=== PATIENT | male | born 1945 | race Caucasian/White ===

== ENCOUNTER 2020-05-18 02:11 | Inpatient (IN) | payer MEDICARE, BC ==
[2020-05-18] VITALS (56 sets, daily range): BP systolic 59–135; BP diastolic 51–95
[~2020-05-18] VITALS: Ht 172.7 cm; Wt 77.1 kg
--- NOTE | 2020-05-18 02:28 | NUR ---
PATIENT CAME TO THE ER BIB RA 78 C/O SUBSTERNAL CHEST PAIN FOR THE PAST 3x DAYS. PT RECEIVED NITROSPRAY SUBLINGUAL EN ROUTE FROM HOME BY PARAMEDICS. PATIENT C/O 2/10 TIGHTNESS PAIN. PATIENT IS AAOX4. NO SOB .BREATHING EVENLY AND UNLABORED ON ROOM AIR AT 96%. CONNECTED TO THE DIANETICIST.
[2020-05-18] MEDS ORDERED: DILTIAZEM HCL 50 MG IV IV ONE (02:30)
--- NOTE | 2020-05-18 02:31 | NUR ---
SPOKE WITH GLORIA FROM [facility], WILL FAX FACESHEET AND CLINICAL PER REQUEST
[2020-05-18] MEDS ORDERED: DILTIAZEM HCL 50 MG IV ONE (02:35)
[2020-05-18 02:47] LABS: BASOPHILS # (AUTO) 0.1 /CMM (0.0-0.2); BASOPHILS % (AUTO) 0.5 % (0.0-2.0); EOSINOPHILS % (AUTO) 0.8 % (0.0-6.0); HEMATOCRIT 52 % (39-51); HEMOGLOBIN 17.3 g/dL (13.5-17.5); LYMPHOCYTES # (AUTO) 1.9 /CMM (0.8-4.8); LYMPHOCYTES % (AUTO) 15.9 % (20.0-44.0); MEAN CORPUSCULAR HGB CONC 33 g/dl (31.0-36.0); MEAN CORPUSCULAR VOLUME 86 fL (80-96); MONOCYTES # (AUTO) 0.8 /CMM (0.1-1.30); MONOCYTES % (AUTO) 6.7 % (2.0-12.0); NEUTROPHILS % (AUTO) 76.1 % (43.0-81.0); PLATELET COUNT (AUTO) 175 /CMM (150-450); WHITE BLOOD COUNT (AUTO) 11.9 K/uL (4.3-11.0)
--- NOTE | 2020-05-18 02:51 | NUR ---
SPOKE WITH GLORIA FROM [facility]. PER DR. FRANCIS (FIELD REVIEWER), STATES "[employer]" REQUESTING TO CALL BACK WITH TROPONIN RESULTS. IF POSITIVE, WILL TRANSFER IN AM.
--- NOTE | 2020-05-18 02:51 | NUR ---
Note merly in EDM - 05/18/20 at 0255 by JAILYN SPOKE WITH GLORIA FROM [facility]. PER GLORIA, MIRROR DEPARTMENT SUPERVISOR STATES "P[employer]" REQUESTING TO CALL BACK WITH TROPONIN RESULTS. IF POSITIVE, WILL TRANSFER IN AM.
[2020-05-18 02:56] LABS: CALCIUM, SERUM 10.1 mg/dL (8.5-10.1); CREATININE 1.3 mg/dL (0.6-1.3); POTASSIUM 3.3 mmol/L (3.5-5.1)
--- NOTE | 2020-05-18 02:58 | NUR ---
covid swab sent to lab
--- NOTE | 2020-05-18 02:58 | NUR ---
XRAY AT BEDSIDE
[2020-05-18 03:02] LABS: ALBUMIN 4.2 g/dL (3.4-5.0); BILIRUBIN,DIRECT 0.2 mg/dL (0.0-0.2); BILIRUBIN,TOTAL 0.8 mg/dL (0.2-1.0); TOTAL PROTEIN, SERUM 8.2 g/dL (6.4-8.2)
--- NOTE | 2020-05-18 03:26 | NUR ---
ATTEMPTED TO CONTACT [facility] REGARDING POSITIVE TROPONIN, NO ANSWER. FAXED RESULTS TO [facility]
[2020-05-18] MEDS ORDERED: HEPARIN SODIUM, PORCINE 5000 UNITS/1 ML VIAL ONE (03:36)
[2020-05-18] MEDS ORDERED: MORPHINE SULFATE INJ 2 MG/ML DISP.SYRIN IV ONE (04:00)
[2020-05-18] MEDS ORDERED: HEPARIN SODIUM, PORCINE 5000 UNITS/1 ML VIAL IV ONE (04:00)
[2020-05-18] MEDS ORDERED: HEPARIN INFUSION/D5W 500 ML IV PRN (04:00)
[2020-05-18] MEDS ORDERED: MORPHINE SULFATE INJ 2 MG/ML DISP.SYRIN ONE (04:02)
[2020-05-18] MEDS ORDERED: HEPARIN INFUSION/D5W 500 ML IV ONE (04:06)
--- NOTE | 2020-05-18 04:54 | NUR ---
LAB CALLED REGARDING NEGATIVE COVID RESULT.
[2020-05-18] MEDS ORDERED: DILTIAZEM HCL 25 MG IV ONE (05:00)
[2020-05-18] MEDS ORDERED: DILTIAZEM HCL IV 125 MG in IV NS 0.9% 100 ML IV PRN (05:00)
--- NOTE | 2020-05-18 06:00 | NUR ---
DR. PINO AT BEDSIDE
[2020-05-18] MEDS ORDERED: AMIODARONE 150 MG in IV D5W 100 ML IV ONE (06:30)
[2020-05-18] MEDS ORDERED: AMIODARONE 450 MG in IV D5W 250 ML IV PRN (06:30)
--- NOTE | 2020-05-18 06:41 | NUR ---
PATIENT AMBULATED TO THE RESTROOM WITH A STEADY GAIT.
[2020-05-18] MEDS ORDERED: Z GUARD REMEDY 2 OZ OINT TP PRN (07:00)
[2020-05-18] MEDS ORDERED: MAGNESIUM HYDROXIDE 30 ML UDC PO PRN (07:00)
[2020-05-18] MEDS: POTASSIUM CHLORIDE 20 MEQ TAB.PRT.SR PO SCH ×3 (07:00→09:28)
[2020-05-18] MEDS ORDERED: ONDANSETRON HCL/PF 4 MG/2 ML VIAL IVP PRN (07:00)
[2020-05-18] MEDS ORDERED: ZOLPIDEM TARTRATE 5 MG TABLET PO PRN (07:00)
[2020-05-18] MEDS ORDERED: MORPHINE SULFATE INJ 2 MG/ML DISP.SYRIN IV PRN (07:00)
[2020-05-18] MEDS ORDERED: HYDROCODONE/APAP 5/325MG TABLET PO PRN (07:00)
[2020-05-18] MEDS ORDERED: MAG HYDROX/AL HYDROX/SIMETH 30 ML UDC PO PRN (07:00)
--- NOTE | 2020-05-18 07:12 | NUR ---
TRIED TO GIVE REPORT, STAFF STATES, "YOU CAN GIVE REPORT IN 30MINUTES, THE NURSE IS RECEIVING REPORT RIGHT NOW FROM OTHER NURSES."
--- NOTE | 2020-05-18 07:15 | NUR ---
ASSESSED PT ON BED AWAKE AND ALERT NOT IN RESPIRATORY DISTRESS, V/S STABLE, KEPT RESTED AND COMFORTABLE. WILL CONTINUE TO MONITOR.
--- NOTE | 2020-05-18 07:22 | NUR ---
PHARMACY CALLED FOR AMIODARONE MEDICATION
[2020-05-18] MEDS ORDERED: POTASSIUM CHLORIDE 20 MEQ TAB.PRT.SR PO ONE (07:25)
--- NOTE | 2020-05-18 07:30 | NUR ---
LOPRESSOR NOT GIVEN BP 116/60.
[2020-05-18] MEDS: PANTOPRAZOLE 40 MG TABLET.DR PO SCH (07:31)
[2020-05-18] MEDS: METOPROLOL TARTRATE 50 MG TABLET PO SCH ×3 (07:31→20:20)
--- NOTE | 2020-05-18 07:31 | NUR ---
REPORT GIVEN TO TYLOR BELLA FOR [facility].
[2020-05-18] MEDS: AMIODARONE 450 MG in IV D5W 250 ML IV PRN ×2 (08:30→16:10)
--- NOTE | 2020-05-18 09:00 | NUR ---
ICU/RN PT ADMITTED FROM ER. DES STATUS.PT IS AWAKE, ALERT ,ORIENTED. 2L N/C SAT O2-96-97%.V/S STABLE ,AFEBRILE.NO PAIN REPORTED AT THIS TIME.A-FIB ON MONITOR. ON AMIODARONE DRIP. PERIFERAL IV.PT USE URINAL.SKIN INTACT.LABS REVIEW.MD AWARE . DUE MEDS ARE GIVEN ORDERED.PT EATS BREAKFAST. CONTINUE MONITORING.
[2020-05-18 09:15] LABS: BASOPHILS % (AUTO) 0.1 % (0.0-2.0); HEMATOCRIT 50 % (39-51); HEMOGLOBIN 16.7 g/dL (13.5-17.5); LYMPHOCYTES # (AUTO) 1.1 /CMM (0.8-4.8); LYMPHOCYTES % (AUTO) 7.6 % (20.0-44.0); MEAN CORPUSCULAR HGB CONC 33 g/dl (31.0-36.0); MEAN CORPUSCULAR VOLUME 86 fL (80-96); MONOCYTES # (AUTO) 0.6 /CMM (0.1-1.30); MONOCYTES % (AUTO) 4.3 % (2.0-12.0); NEUTROPHILS # (AUTO) 13.1 /CMM (1.8-8.9); PLATELET COUNT (AUTO) 185 /CMM (150-450); RED BLOOD CELL COUNT(AUTO) 5.82 MIL/uL (4.5-6.0); WHITE BLOOD COUNT (AUTO) 14.9 K/uL (4.3-11.0)
[2020-05-18 09:26] LABS: ALBUMIN 3.6 g/dL (3.4-5.0); BILIRUBIN,TOTAL 0.9 mg/dL (0.2-1.0); CALCIUM, SERUM 9.7 mg/dL (8.5-10.1); CREATININE 1.1 mg/dL (0.6-1.3); MAGNESIUM 2.1 mg/dL (1.8-2.4); PHOSPHORUS 3.2 mg/dL (2.5-4.9); POTASSIUM 3.8 mmol/L (3.5-5.1); THYROID STIMULATING HORMONE 0.481 uIU/mL (0.358-3.74); TOTAL PROTEIN, SERUM 7.3 g/dL (6.4-8.2)
[2020-05-18] MEDS: ENOXAPARIN SODIUM 80 MG/0.8 ML DISP.SYRIN SQ SCH ×2 (09:28→20:24)
[2020-05-18] MEDS: ASPIRIN 81 MG TAB.CHEW PO SCH (09:28)
[2020-05-18] MEDS: ATORVASTATIN 40 MG TABLET PO SCH (09:31)
[2020-05-18] MEDS: ACETAMINOPHEN 325 MG TABLET PO PRN ×2 (12:55→20:20)
--- NOTE | 2020-05-18 13:15 | NUR ---
ICU/RN. TROPONIN LEVEL INCREASED TO 5.892.DR BAILEY NOTIFIED. AT BED SIDE.
--- NOTE | 2020-05-18 18:32 | NUR ---
ICU/RN PT IS RESTING IN THE BED.STILL ON AMIODARONE DRIP.17-30 PM CONVERTED TO SINUS RHYTHM .V/S STABLE,AFEBRILE.NO PAIN REPORTED AT THIS TIME. CONTINUE TO MONITOR.
--- NOTE | 2020-05-18 20:00 | NUR ---
RN NOTE RECEIVED PT IN BED, A/O X4 ON 2 L VIA NC SATING 95%.PT HAS UNLABORED BREATHING . PT IS ON AMIODARONE DRIP RUNNING AT 0.5 MG/MIN. SAFETY MEASURES IN PLACE
--- NOTE | 2020-05-18 20:32 | NUR ---
DR PINO NOTIFIED ABOUT TROPONIN 24.056, PER DR PINO CONTINUE PREVIOUS ORDER NO NEW ORDER.
[2020-05-19] VITALS (78 sets, daily range): BP systolic 73–151; BP diastolic 31–87
[2020-05-19 05:36] LABS: BASOPHILS % (AUTO) 0.2 % (0.0-2.0); EOSINOPHILS % (AUTO) 0.1 % (0.0-6.0); HEMATOCRIT 50 % (39-51); HEMOGLOBIN 16.6 g/dL (13.5-17.5); LYMPHOCYTES # (AUTO) 2.2 /CMM (0.8-4.8); LYMPHOCYTES % (AUTO) 10.3 % (20.0-44.0); MEAN CORPUSCULAR HGB CONC 33 g/dl (31.0-36.0); MEAN CORPUSCULAR VOLUME 85 fL (80-96); MONOCYTES # (AUTO) 2.2 /CMM (0.1-1.30); MONOCYTES % (AUTO) 10.2 % (2.0-12.0); NEUTROPHILS # (AUTO) 16.7 /CMM (1.8-8.9); NEUTROPHILS % (AUTO) 79.2 % (43.0-81.0); PLATELET COUNT (AUTO) 213 /CMM (150-450); RED BLOOD CELL COUNT(AUTO) 5.91 MIL/uL (4.5-6.0); WHITE BLOOD COUNT (AUTO) 21.1 K/uL (4.3-11.0)
[2020-05-19 05:54] LABS: ALBUMIN 3.3 g/dL (3.4-5.0); BILIRUBIN,TOTAL 1.6 mg/dL (0.2-1.0); CALCIUM, SERUM 9.6 mg/dL (8.5-10.1); CREATININE 1.2 mg/dL (0.6-1.3); MAGNESIUM 2.1 mg/dL (1.8-2.4); PHOSPHORUS 3.3 mg/dL (2.5-4.9); POTASSIUM 4.4 mmol/L (3.5-5.1); TOTAL PROTEIN, SERUM 7.2 g/dL (6.4-8.2)
[2020-05-19 06:03] LABS: THYROID STIMULATING HORMONE 0.511 uIU/mL (0.358-3.74)
--- NOTE | 2020-05-19 06:20 | NUR ---
INFORMED DR [facility] TROPONIN 33.544, NO NEW ORDER AT THIS TIME, PER PT IS ON LOVENOX .
--- NOTE | 2020-05-19 07:36 | NUR ---
pt remained stable during my shift report given to incoming shift for elaine.
[2020-05-19] MEDS ORDERED: AZIL80TA PO (07:58)
[2020-05-19] MEDS ORDERED: HYDR25TA4 PO (07:58)
[2020-05-19] MEDS ORDERED: COLE3.755 PO (08:00)
--- NOTE | 2020-05-19 08:00 | NUR ---
RN NOTES RECEIVED PATIENT IN THE BED A/O X3, ON O2-NC 2L, PATIENT REFUSED PAIN ON BEDSIDE MONITOR SHOWS 64. PATIENT REFUSED SOB, NO PAIN . DUE MEDICATION ADMINISTERED, V/S STABLE. ASSIST TURN AND REPOSTION Q2 HR. PATIENT USING URINAL. CALL LIGHT WITHIN TO REACH. SEEN BY BIOLOGICAL SCIENCES INSTRUCTOR Dr BEY PATIENT WILL TRANSFER TELE UNIT.
[2020-05-19] MEDS: PANTOPRAZOLE 40 MG TABLET.DR PO SCH (08:19)
[2020-05-19] MEDS: ATORVASTATIN 40 MG TABLET PO SCH ×2 (08:19→08:34)
[2020-05-19] MEDS: ENOXAPARIN SODIUM 80 MG/0.8 ML DISP.SYRIN SQ SCH ×2 (08:21→22:05)
[2020-05-19] MEDS: ASPIRIN 81 MG TAB.CHEW PO SCH (08:21)
[2020-05-19] MEDS: METOPROLOL TARTRATE 50 MG TABLET PO SCH ×2 (08:22→20:19)
[2020-05-19] MEDS: AMIODARONE HCL 200 MG TABLET PO SCH ×3 (09:14→17:10)
[2020-05-19] MEDS: ACETAMINOPHEN 325 MG TABLET PO PRN (17:10)
--- NOTE | 2020-05-19 17:10 | NUR ---
rn notes t-99,7 administered Tylenol 650 mg po prn per patient request, also administered scheduled medication. patient sign consent form for LT heart ventricular angiography.
--- NOTE | 2020-05-19 19:27 | NUR ---
sherman mcclain medication were administered for fever effective t- 99.3F at this time. will monitoring.
--- NOTE | 2020-05-19 20:55 | NUR ---
rn notes held bp medication because bp drop 86/32, p-72. patient stable, refused pain. no acute respiratory distress. endorsed oncoming nurse follow plan of care.
[2020-05-20] VITALS (45 sets, daily range): BP systolic 96–138; BP diastolic 29–85
[2020-05-20 05:08] LABS: BASOPHILS % (AUTO) 0.1 % (0.0-2.0); EOSINOPHILS % (AUTO) 0.1 % (0.0-6.0); HEMATOCRIT 47 % (39-51); HEMOGLOBIN 15.7 g/dL (13.5-17.5); LYMPHOCYTES # (AUTO) 1.5 /CMM (0.8-4.8); LYMPHOCYTES % (AUTO) 11.3 % (20.0-44.0); MEAN CORPUSCULAR HGB CONC 33 g/dl (31.0-36.0); MEAN CORPUSCULAR VOLUME 86 fL (80-96); MONOCYTES # (AUTO) 1.6 /CMM (0.1-1.30); MONOCYTES % (AUTO) 11.3 % (2.0-12.0); NEUTROPHILS # (AUTO) 10.6 /CMM (1.8-8.9); NEUTROPHILS % (AUTO) 77.2 % (43.0-81.0); PLATELET COUNT (AUTO) 156 /CMM (150-450); RED BLOOD CELL COUNT(AUTO) 5.47 MIL/uL (4.5-6.0); WHITE BLOOD COUNT (AUTO) 13.7 K/uL (4.3-11.0)
[2020-05-20 05:40] LABS: BILIRUBIN,TOTAL 1.4 mg/dL (0.2-1.0); CALCIUM, SERUM 9.3 mg/dL (8.5-10.1); CREATININE 1.1 mg/dL (0.6-1.3); MAGNESIUM 2.1 mg/dL (1.8-2.4); PHOSPHORUS 2.3 mg/dL (2.5-4.9); POTASSIUM 4.1 mmol/L (3.5-5.1); TOTAL PROTEIN, SERUM 6.9 g/dL (6.4-8.2)
--- NOTE | 2020-05-20 07:00 | NUR ---
RN NOTES PATIENT ASLEEP WELL. NO SIGNIFICANT CHANGES. DENIES CHEST PAIN OR ANY PAIN, NO SOB ON ROOM AIR. CONSENT FORM CAME FROM PROCEDURE SIGNED BY PATIENT WITNESSED BY OR STAFF. REMAINED ST ON TELE MONITOR. KEPT PT CLEAN AND DRY.
[2020-05-20] MEDS: PANTOPRAZOLE 40 MG TABLET.DR PO SCH (07:30)
--- NOTE | 2020-05-20 08:00 | NUR ---
RN NOTES PATIENT A/O X3, STABLE, REFUSED PAIN, NO ACUTE RESPIRATORY DISTRESS, . PATIENT NPO , HOLD AM MEDICATION BECAUSE SCHEDULED FOR lT HEART VENTRICULAR ANGIOGRAM. WILL MONITORING.
[2020-05-20] MEDS: ATORVASTATIN 40 MG TABLET PO SCH (09:00)
[2020-05-20] MEDS: ASPIRIN 81 MG TAB.CHEW PO SCH (09:00)
[2020-05-20] MEDS: METOPROLOL TARTRATE 50 MG TABLET PO SCH ×2 (09:00→20:58)
[2020-05-20] MEDS: AMIODARONE HCL 200 MG TABLET PO SCH ×3 (09:00→18:18)
--- NOTE | 2020-05-20 09:00 | NUR ---
RN NOTES PATIENT NPO FOR PROCEDURE, AND HELD AM MEDICATION.
--- NOTE | 2020-05-20 12:08 | NUR ---
RN NOTES PATIENT PNEUMATIC TOOL REPAIRER AT THIS TIME PLANNING ADVISOR FOR LT HEART VENTRICULAR ANGIOGRAM.
[2020-05-20] MEDS ORDERED: MIDAZOLAM HCL 2 MG/2ML VIAL ONE (12:25)
[2020-05-20] MEDS ORDERED: NITROGLYCERIN ICAR 1,000 MCG/10 ML VIAL ICAR ONE (12:25)
[2020-05-20] MEDS ORDERED: FENTANYL PF 100MCG/2ML AMPUL ONE (12:25)
[2020-05-20] MEDS ORDERED: LIDOCAINE HCL/PF 1% 30 ML SDV ONE (12:25)
[2020-05-20] MEDS ORDERED: IV NS 0.9% 1,000 ML ONE (12:29)
[2020-05-20] MEDS ORDERED: IV SET PRIMARY PUMP SET 1 EA INFUS.SET MC ONE ×2 (12:30→13:01)
[2020-05-20] MEDS ORDERED: HEPARIN SODIUM, PORCINE 5000 UNITS/1 ML VIAL ONE (12:54)
[2020-05-20] MEDS ORDERED: HEPARIN SODIUM, PORCINE 1,000 UNIT/ML VIAL ONE (12:55)
[2020-05-20] MEDS ORDERED: IODIXANOL 320MG/ML 50 ML IV ONE (12:55)
[2020-05-20] MEDS ORDERED: ADENOSINE 90 MG/30 ML VIAL IV ONE (13:01)
[2020-05-20] MEDS ORDERED: IV NS 0.9% 500 ML IV ONE (13:16)
[2020-05-20] MEDS ORDERED: ADENOSINE 6 MG/2 ML VIAL ONE (13:16)
[2020-05-20] MEDS ORDERED: ASPIRIN 81 MG TAB.CHEW ONE (13:20)
[2020-05-20] MEDS ORDERED: TICAGRELOR 90 MG TABLET PO ONE (13:20)
--- NOTE | 2020-05-20 14:00 | NUR ---
RN NOTES PATIENT BACK FROM LT HEART VENTRICULAR ANGIOGRAM AT THIS TIME. AWAKE A/O X3, NO S/S OF RESPIRATORY DISTRESS, AND PAIN. PATIENT S/P STENT PLACEMENT. RECEIVED VERBAL ORDER TO REMOVE 13 CC OF AIR FROM TR BAND RADIAL COMPRESSION BAND. PER TR BAND ASSESSMENT INTACT, NO BLEEDING NOTED. ORDERS RECEIVED AND CARRIED OUT. FAXED ESTEFANIILINTA ORDER TO CASE MANAGEMENT AND SPOKE TO JOSE KAUFFMAN . WILL PROVIDE MEDICATION TO PATIENT PRIOR TO DISCHARGE.
--- NOTE | 2020-05-20 14:53 | NUR ---
rn notes removed 3 cc of air from TR Band redial compression device at this time , no bleeding notes. bp 118/ 85, p-76, patient refused pain, and discomfort at this time. will monitoring.
[2020-05-20] MEDS ORDERED: ASPIRIN 81 MG TAB.CHEW PO ONE (15:00)
[2020-05-20] MEDS ORDERED: IV NS 0.9% 1,000 ML IV SCH (15:00)
[2020-05-20] MEDS ORDERED: ATROPINE SULFATE 1 MG/10 ML DISP.SYRIN IV PRN (15:00)
[2020-05-20] MEDS ORDERED: K PHOS NEUTRAL 250 MG TABLET PO ONE (15:30)
--- NOTE | 2020-05-20 16:10 | NUR ---
rn notes removed 2 cc of air from TR band , patient has small amount of bleeding from right nostril, called md and get order pack right nostril, administered scheduled medication, infusing ns at 100 ml/hr intact, will monitoring.
--- NOTE | 2020-05-20 16:40 | NUR ---
rn notes removed 2 ml of air, no bleeding, checked circulation , and pulse on redial area present.
--- NOTE | 2020-05-20 17:10 | NUR ---
rn notes removed 3 ml of air, checked circulation and pulse TR band area intact.
--- NOTE | 2020-05-20 17:40 | NUR ---
rn notes removed 3 ml of air no bleeding.
--- NOTE | 2020-05-20 17:50 | NUR ---
rn notes patient stable no bleeding. TR band removed, applied band aid. Patient comfortable, change lenience, and offer dinner, and due medication. tolerated 50 % dinner, safety precaution maintained all the time, infusing NS at 100 ml/hr on right fa intact, call light within to reach. using urinal. endorsed oncoming nurse follow plan of care.
[2020-05-21] VITALS (40 sets, daily range): BP systolic 95–141; BP diastolic 51–72
[2020-05-21 05:14] LABS: BASOPHILS % (AUTO) 0.2 % (0.0-2.0); EOSINOPHILS % (AUTO) 0.6 % (0.0-6.0); HEMATOCRIT 45 % (39-51); HEMOGLOBIN 14.9 g/dL (13.5-17.5); LYMPHOCYTES # (AUTO) 1.4 /CMM (0.8-4.8); MEAN CORPUSCULAR HGB CONC 33 g/dl (31.0-36.0); MEAN CORPUSCULAR VOLUME 87 fL (80-96); MONOCYTES # (AUTO) 1.5 /CMM (0.1-1.30); MONOCYTES % (AUTO) 11.7 % (2.0-12.0); NEUTROPHILS # (AUTO) 9.9 /CMM (1.8-8.9); NEUTROPHILS % (AUTO) 76.5 % (43.0-81.0); PLATELET COUNT (AUTO) 171 /CMM (150-450); RED BLOOD CELL COUNT(AUTO) 5.18 MIL/uL (4.5-6.0); WHITE BLOOD COUNT (AUTO) 12.9 K/uL (4.3-11.0)
[2020-05-21 05:24] LABS: CALCIUM, SERUM 8.6 mg/dL (8.5-10.1); PHOSPHORUS 3.1 mg/dL (2.5-4.9)
--- NOTE | 2020-05-21 07:30 | NUR ---
RN OPENING NOTES PATENT PRESENT IN BED, A/OX4, ON NC@2L , TOLERATING WELL, NO SOB, SPO2 IS 96%, DENIES PAIN OR DISCOMFORT, AMBULATORY, URINAL AT BED SITE, ALLERGIES NOTED, IV LINE FLUSHED, PATENT AND INTACT, SAFETY MEASURES IN PLACE, BED IS LOCKED, CALL LIGHT IN REACH, WILL CONT TO MONITOR
--- NOTE | 2020-05-21 07:35 | NUR ---
RN NOTES PATIENT ASLEEP WELL. NO APPARENT RESPIRATORY DISTRESS. DENIES CHEST PAIN. NSR ON TELE MONITOR. RIGHT RADIAL REMAINED INTACT NO ACTIVE BLEEDING PRESENT. DENIES PAIN. OR NUMBNESS. AFEBRILE THROUGHOUT THE SHIFT. ALL NEEDS ATTENDED. ASSISTED WHEN NEEDED. KEPT CLEAN AND DRY.
[2020-05-21] MEDS: PANTOPRAZOLE 40 MG TABLET.DR PO SCH (07:55)
[2020-05-21] MEDS ORDERED: AMIODARONE HCL 200 MG TABLET PO SCH (09:00)
[2020-05-21] MEDS: ATORVASTATIN 40 MG TABLET PO SCH ×2 (09:00→09:32)
[2020-05-21] MEDS ORDERED: TICAGRELOR 90 MG TABLET PO SCH (09:00)
--- NOTE | 2020-05-21 09:00 | NUR ---
NC REMOVED, PATIENT ON ROOM AIR, TOLERATING WELL, NO SOB OR RESP DISTRESS NOTED, SPO2 IS 97%
[2020-05-21] MEDS: ASPIRIN 81 MG TAB.CHEW PO SCH (09:32)
[2020-05-21] MEDS: METOPROLOL TARTRATE 50 MG TABLET PO SCH (09:35)
--- NOTE | 2020-05-21 09:48 | NUR ---
Refuse Atrovastin, stating have an adverse reaction to STATINS, made aware
[2020-05-21] MEDS ORDERED: AMIO200T7 PO (09:54)
[2020-05-21] MEDS ORDERED: METO50TA16 PO (09:54)
[2020-05-21] MEDS ORDERED: ASPI-1169 PO (09:54)
[2020-05-21] MEDS ORDERED: TICA90TA PO (09:54)
--- NOTE | 2020-05-21 13:18 | NUR ---
Patient discharged home, via car (friend picked up) , eduction provided, discharge instructions provided, ID band and IV line removed
[2020-05-22] MEDS ORDERED: COLESEVELAM PO SCH (09:00)
[2020-05-22] MEDS ORDERED: AZILSARTAN MEDOXOMIL 80 MG PO SCH (09:00)
== END 2020-05-21 13:05 | disposition home or self-care (01) | DRG 246 ==
LOC: ER 02:13 → TELE 05:05 → ICU 06:50
PROVIDERS: ADMIT Family Medicine; ATTEND Hospitalist
PROC: 027034Z Dilation of Coronary Artery, One Artery with Drug-eluting Intraluminal Device, Percutaneous Approach (ICD-10-PCS; principal; 2020-05-20)
PROC: 4A023N7 Measurement of Cardiac Sampling and Pressure, Left Heart, Percutaneous Approach (ICD-10-PCS; 2020-05-20)
PROC: B211YZZ Fluoroscopy of Multiple Coronary Arteries using Other Contrast (ICD-10-PCS; 2020-05-20)
DX: I48.91 Unspecified atrial fibrillation (principal); I21.A1 Myocardial infarction type 2; N17.0 Acute kidney failure with tubular necrosis; I10 Essential (primary) hypertension; E87.6 Hypokalemia; D72.829 Elevated white blood cell count, unspecified; Z80.8 Family history of malignant neoplasm of other organs or systems; E78.5 Hyperlipidemia, unspecified; I25.10 Atherosclerotic heart disease of native coronary artery without angina pectoris; R73.9 Hyperglycemia, unspecified; H18.40 Unspecified corneal degeneration; R74.8 Abnormal levels of other serum enzymes; Z20.822 Contact with and (suspected) exposure to COVID-19; T50.2X5A Adverse effect of carbonic-anhydrase inhibitors, benzothiadiazides and other diuretics, initial encounter; Y92.89 Other specified places as the place of occurrence of the external cause
CPT/HCPCS: 36415; 71045-TC; 80048-TC; 80053-TC; 80061-TC; 80076-TC; 83735-TC; 84100-TC; 84439-TC; 84443-TC; 84484-TC; 85025-TC; 85730-TC; 87081-TC; 92980; 93307-TC; A6253; C1725; C1769; C9803; G0378; G0500; J0153; J0282; J1644; J1650; J2250; J2270; J3010; J3490; J7030; J7040; J7060